=== PATIENT | male | born 1995 | race Caucasian/White ===

== ENCOUNTER 2018-07-18 14:41 | Emergency (ER) | payer OTHER, SELFPAY ==
[2018-07-18 14:43] VITALS: BP 121/77; BP 122/77; PULSE 73; PULSE 87; RESP 18; TEMP 36.8; O2SAT 99; BMI 15.5
--- NOTE | 2018-07-18 15:07 | EKG12_ITS ---
Test Reason : HEAD INJURY Blood Pressure : / mmHG Vent. Rate : 066 BPM Atrial Rate : 066 BPM P-R Int : 160 ms QRS Dur : 094 ms QT Int : 362 ms P-R-T Axes : 079 072 081 degrees QTc Int : 379 ms Normal sinus rhythm with sinus arrhythmia Normal ECG Confirmed by DINESH MCCOY, MARGRET ([id number]), video news editor ROXY COSTA ([id number] on 07/21/2018 1:55:54 PM Referred By: NIKKI Confirmed By:MARGRET MONTIEL MD
--- NOTE | 2018-07-18 15:10 | ED.RN ---
NO OLD EKG
--- NOTE | 2018-07-18 15:26 | ED.VISSUMM ---
- ER Visit Summary Date of Service: 07/18/18 Chief Complaint: Syncope History of Present Illness: The patient is a 23 M with no primary care physician. Patient reports that he was pulling on an approximately 9 x 9 square magnetic came down and hit him on the bridge of the nose. States he had minimal bleeding from this. He also has minimal pain. He describes a burning pain is still 10 at worst 1 out of 10 currently. Ports that approximately 5 minutes later he began to feel lightheaded. He had a syncopal episode. He states that he is nauseated and diaphoretic prior to this. Denies any chest pain or palpitations. States that he had this previously when he had a crush injury to 1 of his fingers. Review of systems: General: No fever, chills, cold sweats. Cardiovascular: No chest pain, palpitations. Respiratory: No cough, shortness of breath, dyspnea on exertion. Gastrointestinal: No abdominal pain, nausea, vomiting, diarrhea, melena, or hematochezia. Genitourinary: No dysuria, frequency, hematuria. Skin: No rash. Neuro: No headache, numbness, weakness. Physical Examination: Vitals: Stable. Afebrile. Head: 1 cm Y shaped laceration to the upper right occipital scalp. No active bleeding. 0.5 cm superficial laceration to the bridge of his nose. No active bleeding. No nasal septal hematoma. Neck: No vertebral tenderness. Full ROM without difficulty. Cleared by NEXUS criteria. Back: No vertebral tenderness. General: A&O x 3. NAD. Cardiovascular exam: Regular rate and rhythm, no murmur, rub or gallop. Respiratory exam: Chest nontender. No crepitus. Clear to auscultation bilaterally. No wheezes or stridor. Abdominal exam: Soft, nontender, nondistended, normal bowel sounds. No pain in RUQ or LUQ specifically. No peritoneal signs. Extremity: Atraumatic. No pain with range of motion. Test Results: EKG is sinus arrhythmia 66. There is no evidence of Brugada syndrome. 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 Emergency Department Course and Treatment: Patient refused pain medications. History of Adacel IM. He did not want his laceration repaired. I feel that a reasonable course of action. Treatment Plan: Patient be discharged instructed to follow-up with [facility] in 1 week for another exam. Return to the emergency department for any worsening symptoms. Disposition: To home in improved and stable condition. Impression: 1. Scalp laceration, 1 cm, not repaired. 2. Laceration of nose, 5 mm, not repaired. 3. Vasovagal syncope. This note was generated with [employer] dictation software. It may contain incorrect words, spelling, and punctuation that were not noted in review of the chart prior to signing ED Disposition - Plan for ED Patient: Disposition: Home or Assisted Living Chief Complaint: Head Injury Instructions: ED Syncope Vasovagal [facility]: [facility] - 1 Week
[2018-07-18] MEDS: Diphth,Pertuss(Acell),Tet Vac 0.5 ML Vial IM (15:29)
[2018-07-18 15:51] VITALS: RESP 18
--- NOTE | 2018-07-18 15:56 | ED.RN ---
pt aware he needs to followup with [facility]- denies need for address. [facility] aware pt coming and open till 1700.
== END 2018-07-18 15:56 | disposition home or self-care (01) ==
LOC: ED 15:50
PROVIDERS: Emergency Provider Emergency Medicine
DX: S01.01XA Laceration without foreign body of scalp, initial encounter (principal); S01.21XA Laceration without foreign body of nose, initial encounter; R55 Syncope and collapse; W20.8XXA Other cause of strike by thrown, projected or falling object, initial encounter; Y93.9 Activity, unspecified; Y92.89 Other specified places as the place of occurrence of the external cause; Y99.9 Unspecified external cause status; I45.10 Unspecified right bundle-branch block
CPT/HCPCS: 90471; 90715; 93005; 99282